=== PATIENT | female | born 1965 | race Two or more races ===

== ENCOUNTER 2019-08-02 12:21 | Inpatient (IN) | payer MEDICAID ==
[~2019-08-02] VITALS: Ht 167.6 cm; Wt 103.0 kg
[~2019-08-02 12:21] MED LIST: lorazapam PO
[2019-08-02] MEDS ORDERED: SODIUM CHLORIDE 0.9% 1,000 ML IVB ONE (13:26)
[2019-08-02 13:45] LABS: Basophils # (auto) 0 uL; Basophils % (auto) 0.3 % (0.0-2.0); Eosinophils # (auto) 0.1 uL; Eosinophils % (auto) 1.1 % (0.0-7.0); Hematocrit 39.2 % (36.0-46.0); Lymphocytes # (auto) 1.1 uL; Lymphocytes % (auto) 11.3 % (10.0-50.0); Mean Corpuscular Hemoglobin 29.5 pg (28.0-32.0); Mean Corpuscular Hgb Conc. 33.2 g/dL (32.0-36.0); Mean Corpuscular Volume 88.8 fL (80.0-100.0); Monocytes # (auto) 0.4 uL; Monocytes % (auto) 4.6 % (0.0-12.0); Neutrophils # (auto) 7.9 uL; Neutrophils % (auto) 82.7 % (37.0-80.0); Platelet Count (auto) 254 10^3/uL (140-450); Red Blood Cells 4.41 10^6/uL (4.0-5.20); Red Cell Distribution Width 13.5 % (11.8-14.3); White Blood Cell 9.6 10^3/uL (4.4-10.8)
[2019-08-02 14:03] LABS: Albumin 3.3 g/dL (3.4-5.0); BUN/Creatinine Ratio 16.4; Calcium 8.5 mg/dL (8.5-10.1); Magnesium 2.2 mg/dL (1.6-2.6); Potassium 4.1 mmol/L (3.5-5.1)
[2019-08-02 14:05] LABS: INR 0.95 (0.9-1.15); Partial Thromboplastin Time 28.5 sec (23.64-32.05)
[2019-08-02 14:06] LABS: Bilirubin, Total 0.7 mg/dL (0.2-1.0)
[2019-08-02] MEDS: PROMETHAZINE HCL 25 MG/ML 1ML IV PRN ×2 (15:13→21:12)
[2019-08-02] MEDS ORDERED: cefTRIAXone 1GM/50ML D5W 50 ML IV ONE (16:45)
[2019-08-02] MEDS ORDERED: ACETAMINOPHEN 500 MG TAB PO PRN (17:15)
[2019-08-02] MEDS ORDERED: ONDANSETRON HCL 4 MG/2 ML VIAL IV PRN (17:15)
[2019-08-02] MEDS ORDERED: MORPHINE SULF INJ 2 MG/ML SYRINGE 1ML IV PRN (17:15)
[2019-08-02] MEDS ORDERED: NITROGLYCERIN 0.4 MG SL TAB SL PRN (17:15)
[2019-08-02] MEDS: D5W/SOD CHL 0.45%/KCL 20MEQ 1,000 ML IV SCH (17:24)
[2019-08-02] MEDS: LEVOFLOXACIN 500MG 100 ML IV SCH (17:38)
[2019-08-02] MEDS ORDERED: hydrALAZINE HCL 20 MG/ML VL IV PRN (17:45)
--- NOTE | 2019-08-02 18:47 | NUR ---
PATIENT RECEIVED FROM EMERGENCY ROOM WITHOUT REPORT
--- NOTE | 2019-08-02 20:15 | NUR ---
RECEIVED PATIENT IN BED, AAOX4. NO DISTRESS NOTED. INTRODUCED MYSELF TO THE PATIENT. ORIENTATION DONE. AFEBRILE. NO SOB NOTED. ABDOMINAL PAIN NOTED. WILL MEDICATE PATIENT. POCS DISCUSSED WITH PATIENT AND SHOWED UNDERSTANDING. BED KEPT ON LOWEST POSITION. SIDE RAILS UP. CALL LIGHT/TABLE IN REACH. KEPT COMFORTABLE.
[2019-08-02] MEDS: metroNIDAZOLE 500MG/100ML 100 ML IV SCH (21:11)
[2019-08-02] MEDS: FAMOTIDINE (10MG/ML) 2ML VL IV SCH (21:11)
[2019-08-02] MEDS: MORPHINE SULF INJ 2 MG/ML SYRINGE 1ML IV PRN (21:12)
[2019-08-02 21:15] LABS: Urine Bacteria FEW /hpf (None Seen); Urine Blood Negative /uL (Negative); Urine Mucus FEW (None Seen); Urine WBC 8 /hpf (0 - 5)
[2019-08-02 22:00] VITALS: BP 117/60
[2019-08-03] MEDS: D5W/SOD CHL 0.45%/KCL 20MEQ 1,000 ML IV SCH ×3 (04:13→23:15)
[2019-08-03] MEDS: MORPHINE SULF INJ 2 MG/ML SYRINGE 1ML IV PRN ×3 (04:35→22:46)
[2019-08-03 05:00] VITALS: BP_SYST 117; BP_SYST 153; BP_DIAS 100; BP_DIAS 62
[2019-08-03] MEDS: metroNIDAZOLE 500MG/100ML 100 ML IV SCH ×3 (06:00→22:18)
--- NOTE | 2019-08-03 06:16 | NUR ---
ON BED, ASLEEP. NO DISTRESS NOTED. FOR MORE CARE AND MANAGEMENT.
--- NOTE | 2019-08-03 08:11 | NUR ---
Opening Shift Note Assumed care of patient, awake and alert. No S/S of distress/SOB. Patient reports 8/10 headache. Will medicate patient for pain per MD order. Instructed on POC and to call for assist PRN, will continue to monitor for changes Q1hr and PRN.
[2019-08-03 09:00] VITALS: BP 130/63
--- NOTE | 2019-08-03 09:18 | NUR ---
Patient down to OR at this time. Medications withheld.
[2019-08-03] MEDS ORDERED: ceFAZolin 1GM/50ML 50 ML IV ONE (09:22)
[2019-08-03] MEDS ORDERED: POVIDONE IODINE 5% TOPICAL CREAM TOP ONE (09:50)
[2019-08-03] MEDS ORDERED: SUCCINYLCHOLINE CHLORIDE 20 MG/ML 10ML VIAL IV ONE (09:52)
[2019-08-03] MEDS ORDERED: MEPERIDINE HCL (50 MG/ML) 1 ML VIAL ONE (09:54)
[2019-08-03] MEDS ORDERED: MIDAZOLAM HCL 1MG/1ML-2 ML VIAL ONE (09:54)
[2019-08-03] MEDS ORDERED: fentaNYL CITRATE 100 MCG/2 ML VL ONE (09:54)
[2019-08-03] MEDS ORDERED: MORPHINE SULFATE 4 MG/ML SYR/VIAL IV PRN (10:00)
[2019-08-03] MEDS ORDERED: LABETALOL HCL 5 MG/ML 4ML SYRINGE IV PRN (10:00)
[2019-08-03] MEDS ORDERED: HYDROmorphone HCL 2 MG/ML VL IV PRN (10:00)
[2019-08-03] MEDS ORDERED: ACCU-CHEK COMFORT CURVE STRIP VI ONE (10:00)
[2019-08-03] MEDS ORDERED: MIDAZOLAM HCL 1MG/1ML-2 ML VIAL IV PRN (10:00)
[2019-08-03] MEDS ORDERED: ONDANSETRON HCL 4 MG/2 ML VIAL IV PRN (10:00)
[2019-08-03] MEDS ORDERED: KETOROLAC TROMETH 30 MG/ML 1ML VIAL IV ONE (10:00)
[2019-08-03] MEDS ORDERED: ePHEDrine SULFATE 50 MG/ML AMP IV PRN (10:00)
[2019-08-03] MEDS ORDERED: DexAMETHasone SOD PHOS 10MG/1ML VIAL INJ ONE (10:09)
[2019-08-03] MEDS ORDERED: PROPOFOL 10 MG/ML 20 ML IV ONE (10:09)
[2019-08-03] MEDS ORDERED: ROCURONIUM 10MG/ML 10ML VIAL IV ONE (10:09)
[2019-08-03] MEDS ORDERED: METOCLOPRAMIDE HCL 5MG/ml INJ 2ml VIAL ONE (10:33)
[2019-08-03] MEDS ORDERED: NEOSTIGMINE 1 MG/ML INJ (10mg/10ML VIAL) ONE (10:33)
[2019-08-03] MEDS ORDERED: GLYCOPYRROLATE 0.2 MG/ML 1ML VIAL ONE (10:46)
[2019-08-03] MEDS ORDERED: FUROSEMIDE 20 MG/2 ML VIAL IV ONE (11:11)
[2019-08-03] MEDS ORDERED: FUROSEMIDE 20 MG/2 ML VIAL ONE (11:12)
[2019-08-03] MEDS: FAMOTIDINE (10MG/ML) 2ML VL IV SCH ×2 (12:04→22:18)
[2019-08-03] MEDS: LEVOFLOXACIN 500MG 100 ML IV SCH (12:04)
[2019-08-03] MEDS: amLODIPine BESYLATE 5 MG TAB PO SCH (12:04)
--- NOTE | 2019-08-03 12:15 | NUR ---
Report received from CASSIDY Lauren that patient at OR/Surgery at this time for a procedure as per Dr. Huddleston. Patient will be on Telemetry after surgery.
--- NOTE | 2019-08-03 13:00 | NUR ---
Patient back to room post op Lap Cholecystectomy. Placed on O2 at 3 LPM. Assisted the patient with bedpan. Clear, yellow urine noted on the bedpan.
--- NOTE | 2019-08-03 13:15 | NUR ---
Informed Dr. Parra that patient has potential ischemia as per EKG at OR/Surgery as reported by the TRADE MANAGERCASSIDY Meraz.
--- NOTE | 2019-08-03 13:20 | NUR ---
BP = 140/83, Heart Rate = 58, RR = 16, O2 Sat = 92 % on O2 at 3 LPM via nasal cannula.
--- NOTE | 2019-08-03 13:25 | NUR ---
Patient eating lunch, on Clear Liquid Diet. Patient able to tolerate clear liquids.
--- NOTE | 2019-08-03 13:45 | NUR ---
Both legs on SCDs hooked on SCD machine.
--- NOTE | 2019-08-03 14:45 | NUR ---
PTARICIA Winn assisted the patient to the bathroom.
[2019-08-03 17:00] VITALS: BP 135/90
--- NOTE | 2019-08-03 17:11 | NUR ---
Patient stated she has headache and stomach pain. Facial grimacing noted, rubbing her abdominal area.
--- NOTE | 2019-08-03 17:11 | NUR ---
Heart rate = 98 to 101 bpm on site monitor. Morphine Sulf Inj 1 mg given for pain level at 10/10 at this time.
--- NOTE | 2019-08-03 17:20 | NUR ---
Attempted to call patient's sister, phone # on the face sheet not the correct contact number.
--- NOTE | 2019-08-03 17:20 | NUR ---
Unable to verify the home medications, patient has no list of medications with her.
--- NOTE | 2019-08-03 18:40 | NUR ---
Assisted the patient to the bathroom. Patient urinated, no bowel movement. Assisted the patient back to bed.
--- NOTE | 2019-08-03 19:05 | NUR ---
Patient stated she has headache. Tylenol PO given for headache. [facility] shift lead [employer] at bedside.
--- NOTE | 2019-08-03 19:20 | NUR ---
Opening Shift Note Assumed care of patient, awake and alert. Resting in bed comfortably. No S/S of distress/SOB or pain. Patient status post lap choley, with 3 abdominal incisions which are dry and intact upon inspection, abdominal binder in place. SCDs in place. Patient verbalizes tolerable pain at this moment. Instructed on POC and to call for assist PRN, will continue to monitor for changes Q1hr and PRN.
--- NOTE | 2019-08-03 19:40 | NUR ---
IV insertion IV access obtained, via clean sterile technique by inserting 20 gauge catheter at RIGHT HAND after 1 attempt. IV secured properly. No trauma to site. Patient tolerated well.
--- NOTE | 2019-08-03 19:45 | NUR ---
LAC IV removal D/T observed leaking at site IV DC'd with clean sterile technique, catheter fully intact. Pressure dressing applied to site. Patient tolerated well.
--- NOTE | 2019-08-03 21:30 | NUR ---
PATIENT UP TO AMBULATE PATIENT AMBULATING THROUGH UNIT WITH NURSING STAFF FOR STAND BY ASSIST. PATIENT TOLERATING WELL
--- NOTE | 2019-08-03 22:00 | NUR ---
PATIENT BACK IN BED FROM AMBULATION STATES, "I FEEL EVEN BETTER AFTER WALKING." WILL CONTINUE TO AMBULATE Q4H PER ORDER CALL LIGHT WITHIN REACH
--- NOTE | 2019-08-03 22:40 | NUR ---
PAIN PATIENT VERBALIZES ABDOMINAL PAIN, RATING IT 7/10. WILL ASSESS AND MEDICATE PER ORDER.
[2019-08-03 23:27] VITALS: BP 133/86
--- NOTE | 2019-08-04 02:12 | NUR ---
PATIENT AMBULATES WITH STANDBY ASSIST TO RESTROOM. TOLERATED WELL.
[2019-08-04] MEDS: MORPHINE SULF INJ 2 MG/ML SYRINGE 1ML IV PRN ×2 (03:34→14:20)
[2019-08-04 05:33] VITALS: BP 133/74
[2019-08-04] MEDS: metroNIDAZOLE 500MG/100ML 100 ML IV SCH ×3 (05:56→22:23)
--- NOTE | 2019-08-04 07:30 | NUR ---
Opening Shift Note Assumed care of patient, awake and alert. No S/S of distress/SOB or pain. Instructed on POC and to call for assist PRN, will continue to monitor for changes Q1hr and PRN.
[2019-08-04 08:00] VITALS: BP 145/67
[2019-08-04 09:00] VITALS: BP 145/67
[2019-08-04] MEDS: HYDROcodone-ACET 5/325MG TAB PO PRN ×2 (09:16→22:24)
[2019-08-04] MEDS: amLODIPine BESYLATE 5 MG TAB PO SCH (09:23)
[2019-08-04] MEDS: LEVOFLOXACIN 500MG 100 ML IV SCH (09:23)
[2019-08-04] MEDS: FAMOTIDINE (10MG/ML) 2ML VL IV SCH ×2 (09:25→22:23)
[2019-08-04 13:00] VITALS: BP 134/98
[2019-08-04] MEDS: D5W/SOD CHL 0.45%/KCL 20MEQ 1,000 ML IV SCH ×2 (13:55→19:15)
[2019-08-04 17:15] VITALS: BP 126/77
[2019-08-04 23:16] VITALS: BP 127/79
[2019-08-05] MEDS: D5W/SOD CHL 0.45%/KCL 20MEQ 1,000 ML IV SCH (05:15)
[2019-08-05 05:26] VITALS: BP_SYST 135; BP_SYST 94; BP_DIAS 63; BP_DIAS 77
[2019-08-05] MEDS: metroNIDAZOLE 500MG/100ML 100 ML IV SCH ×3 (05:42→23:05)
--- NOTE | 2019-08-05 07:30 | NUR ---
Opening Shift Note Assumed care of patient, awake and alert. No S/S of distress/SOB or pain. Patient has cough that was getting worse last night. She is requesting cough medicine. Will try to obtain order from doctor. Instructed on POC and to call for assist PRN, will continue to monitor for changes Q1hr and PRN.
[2019-08-05 08:00] VITALS: BP 132/57
[2019-08-05] MEDS: FAMOTIDINE (10MG/ML) 2ML VL IV SCH ×2 (09:48→21:05)
[2019-08-05] MEDS: LEVOFLOXACIN 500MG 100 ML IV SCH (09:48)
[2019-08-05] MEDS: amLODIPine BESYLATE 5 MG TAB PO SCH (09:49)
[2019-08-05 09:51] VITALS: BP 132/57
[2019-08-05 13:00] VITALS: BP 125/69
[2019-08-05 14:18] LABS: Basophils # (auto) 0.1 uL; Basophils % (auto) 0.8 % (0.0-2.0); Eosinophils # (auto) 0.3 uL; Eosinophils % (auto) 2.3 % (0.0-7.0); Hematocrit 41.6 % (36.0-46.0); Hemoglobin 13.6 g/dL (12.2-16.2); Lymphocytes # (auto) 1.7 uL; Lymphocytes % (auto) 14.7 % (10.0-50.0); Mean Corpuscular Hemoglobin 29.2 pg (28.0-32.0); Mean Corpuscular Hgb Conc. 32.7 g/dL (32.0-36.0); Mean Corpuscular Volume 89.2 fL (80.0-100.0); Monocytes # (auto) 0.8 uL; Monocytes % (auto) 6.5 % (0.0-12.0); Neutrophils # (auto) 8.8 uL; Neutrophils % (auto) 75.7 % (37.0-80.0); Platelet Count (auto) 278 10^3/uL (140-450); Red Blood Cells 4.67 10^6/uL (4.0-5.20); Red Cell Distribution Width 13.2 % (11.8-14.3); White Blood Cell 11.6 10^3/uL (4.4-10.8)
[2019-08-05 14:41] LABS: Albumin 3.4 g/dL (3.4-5.0); BUN/Creatinine Ratio 13.6; Calcium 8.8 mg/dL (8.5-10.1); Potassium 3.7 mmol/L (3.5-5.1)
[2019-08-05 14:44] LABS: Bilirubin, Total 0.4 mg/dL (0.2-1.0); Total Protein 7.7 g/dL (6.4-8.2)
[2019-08-05] MEDS: guaiFENesin-DM 100/10mg/5ml SYR PO PRN (15:34)
[2019-08-05 17:00] VITALS: BP 124/63
[2019-08-05] MEDS: HYDROcodone-ACET 5/325MG TAB PO PRN (20:29)
[2019-08-05 22:00] VITALS: BP 143/98
[2019-08-06] MEDS: guaiFENesin-DM 100/10mg/5ml SYR PO PRN ×2 (00:42→10:11)
[2019-08-06 05:00] VITALS: BP 129/59
[2019-08-06 05:55] LABS: Basophils # (auto) 0.1 uL; Basophils % (auto) 0.6 % (0.0-2.0); Eosinophils # (auto) 0.3 uL; Eosinophils % (auto) 3.9 % (0.0-7.0); Hematocrit 41.1 % (36.0-46.0); Hemoglobin 13.8 g/dL (12.2-16.2); Lymphocytes # (auto) 2.5 uL; Mean Corpuscular Hemoglobin 29.6 pg (28.0-32.0); Mean Corpuscular Hgb Conc. 33.6 g/dL (32.0-36.0); Monocytes # (auto) 0.6 uL; Monocytes % (auto) 6.9 % (0.0-12.0); Neutrophils # (auto) 5.1 uL; Neutrophils % (auto) 59.6 % (37.0-80.0); Nucleated Red Blood Cells % 0.1 %; Platelet Count (auto) 282 10^3/uL (140-450); Red Blood Cells 4.67 10^6/uL (4.0-5.20); Red Cell Distribution Width 13.7 % (11.8-14.3); White Blood Cell 8.5 10^3/uL (4.4-10.8)
[2019-08-06] MEDS: metroNIDAZOLE 500MG/100ML 100 ML IV SCH ×2 (06:27→13:36)
[2019-08-06 06:33] LABS: Albumin 3.4 g/dL (3.4-5.0); BUN/Creatinine Ratio 18.1; Calcium 8.8 mg/dL (8.5-10.1); Potassium 3.7 mmol/L (3.5-5.1)
[2019-08-06 06:36] LABS: Bilirubin, Total 0.4 mg/dL (0.2-1.0); Total Protein 7.4 g/dL (6.4-8.2)
[2019-08-06 08:00] VITALS: BP 148/95
[2019-08-06 09:00] VITALS: BP 148/95
[2019-08-06] MEDS: LEVOFLOXACIN 500MG 100 ML IV SCH (10:00)
[2019-08-06] MEDS: FAMOTIDINE (10MG/ML) 2ML VL IV SCH (10:10)
[2019-08-06] MEDS: amLODIPine BESYLATE 5 MG TAB PO SCH (10:11)
--- NOTE | 2019-08-06 10:12 | NUR ---
IV removal IV DC'd with clean sterile technique, catheter fully intact. Pressure dressing applied to site. Patient tolerated well. NOTE: The IV site became tender. There was also signs of swelling and heat to the touch. Patient encouraged to keep arm elevated. Will continue to monitor swelling.
[2019-08-06 13:00] VITALS: BP 104/53
--- NOTE | 2019-08-06 16:25 | NUR ---
Discharge instructions given as ordered. Encourage to follow up with Dr. Huddleston for staple removal. Additional resources given to patient. Patient reports that they see a doctor every three months at a clinic. All questions and concerns addressed. Patient verbalized understanding. IV removed with catheter intact, pressure dressing applied. Telemetry unit returned to quality assurance monitor. Patient ambulated to vehicle with all personal belongings, accompanied by staff and family member. No distress noted at time of departure.
== END 2019-08-06 16:25 | disposition home or self-care (01) | DRG 263 ==
LOC: EDBD 12:21 → ER 12:26 → OVERFLOW 12:27 → WEST WING 18:26 → TELE-WESTW 08-03 14:14
PROVIDERS: ADMIT Nurse Practitioner Acute Care; ATTEND Internal Medicine Pulmonary Disease
PROC: 0FT44ZZ Resection of Gallbladder, Percutaneous Endoscopic Approach (ICD-10-PCS; principal; 2019-08-02)
DX: K80.00 Calculus of gallbladder with acute cholecystitis without obstruction (principal); E66.01 Morbid (severe) obesity due to excess calories; R16.0 Hepatomegaly, not elsewhere classified; E78.5 Hyperlipidemia, unspecified; F41.9 Anxiety disorder, unspecified; I10 Essential (primary) hypertension; E78.00 Pure hypercholesterolemia, unspecified; Z88.5 Allergy status to narcotic agent; Z88.6 Allergy status to analgesic agent; Z83.3 Family history of diabetes mellitus; Z82.49 Family history of ischemic heart disease and other diseases of the circulatory system; Z98.891 History of uterine scar from previous surgery; Z98.51 Tubal ligation status; Z79.899 Other long term (current) drug therapy; Z68.36 Body mass index [BMI] 36.0-36.9, adult
CPT/HCPCS: 36415; 71045; 76705; 80053; 81001; 82150; 82247; 83690; 83735; 85025; 85610; 85730; 86850; 86900; 86901; 93005; 94761; 96365; G0378; J0330; J0690; J0696; J1100; J1956; J2250; J2405; J2704; J3490

== ENCOUNTER 2021-06-26 11:24 | Inpatient (IN) | payer MEDICAID ==
[~2021-06-26] VITALS: Ht 172.7 cm; Wt 90.7 kg
[2021-06-26] MEDS ORDERED: methylPREDNISolone SOD SUCC 125 MG/2 ML VL IV ONE (12:15)
[2021-06-26 13:13] LABS: Basophils # (auto) 0.1 10 ^3/uL (0-0.2); Basophils % (auto) 0.6 % (0.0-2.0); Eosinophils # (auto) 0.1 10 ^3/uL (0-0.8); Eosinophils % (auto) 1.5 % (0.0-7.0); Hematocrit 42.6 % (36.0-46.0); Hemoglobin 14.1 g/dL (12.2-16.2); Lymphocytes # (auto) 0.9 10 ^3/uL (0.4-5.4); Lymphocytes % (auto) 10.8 % (10.0-50.0); Mean Corpuscular Hgb Conc. 33.2 g/dL (32.0-36.0); Mean Corpuscular Volume 87.3 fL (80.0-100.0); Monocytes # (auto) 0.5 10 ^3/uL (0-1.3); Monocytes % (auto) 5.6 % (0.0-12.0); Neutrophils # (auto) 6.8 10 ^3/uL (1.6-8.6); Neutrophils % (auto) 81.5 % (37.0-80.0); Red Blood Cells 4.88 10^6/uL (4.0-5.20); Red Cell Distribution Width 13.2 % (11.8-14.3); White Blood Cell 8.4 10^3/uL (4.4-10.8)
[2021-06-26 13:37] LABS: Albumin 3.4 g/dL (3.4-5.0); Anion Gap 7 (5-15); Blood Urea Nitrogen 20 mg/dL (7-18); Calcium 8.6 mg/dL (8.5-10.1); Carbon Dioxide 23 mmol/L (21-32); Chloride 109 mmol/L (98-107); Glucose 101 mg/dL (74-106); Potassium 4.3 mmol/L (3.5-5.1); Sodium 139 mmol/L (136-145)
[2021-06-26 13:43] LABS: Alanine Aminotransferase 55 U/L (13-56); Alkaline Phosphatase 60 U/L (45-117); Aspartate Aminotransferase 24 U/L (15-37); Bilirubin, Total 0.2 mg/dL (0.2-1.0); CRP High Sensitivity 0.26 mg/dL (< 0.3); GFR African American 114 mL/min; GFR Non-African American 94 mL/min; Total Protein 7.5 g/dL (6.4-8.2)
[2021-06-26] MEDS ORDERED: SODIUM CHLORIDE 0.9% 500 ML IV ONE (15:00)
[2021-06-26] MEDS ORDERED: DOCUSATE CALCIUM 240 MG CAP PO PRN (15:00)
[2021-06-26] MEDS ORDERED: NITROGLYCERIN 0.4 MG SL TAB SL PRN (15:00)
[2021-06-26] MEDS ORDERED: hydrALAZINE HCL 20 MG/ML VL IV PRN (15:00)
[2021-06-26] MEDS ORDERED: ONDANSETRON HCL 4 MG/2 ML VIAL IV PRN (15:00)
[2021-06-26] MEDS ORDERED: ACETAMINOPHEN 500 MG TAB PO PRN (15:00)
[2021-06-26 15:27] LABS: INR 0.98 (0.9-1.15)
[2021-06-26] MEDS: SODIUM CHLORIDE 0.9% 1,000 ML IV SCH (16:18)
[2021-06-26 20:37] LABS: Urine Bacteria NONE SEEN /hpf (None Seen); Urine Blood 1+ /uL (Negative); Urine Mucus FEW (None Seen); Urine Specific Gravity 1.009 (1.001-1.035); Urine WBC 3 /hpf (0 - 5)
[2021-06-26] MEDS: BUDESONIDE (INHALATION) 180 MCG IH IN SCH (22:00)
[2021-06-26] MEDS: ENOXAPARIN SOD 40 MG/0.4 ML SYRINGE SC SCH (22:33)
[2021-06-27] MEDS: ALBUTEROL SULF HFA 90MCG INH 200DOSE IN PRN ×2 (00:30→10:43)
[2021-06-27] MEDS: SODIUM CHLORIDE 0.9% 1,000 ML IV SCH ×2 (04:20→19:34)
[2021-06-27] MEDS: BUDESONIDE (INHALATION) 180 MCG IH IN SCH ×2 (10:43→22:00)
[2021-06-27] MEDS: AZITHROMYCIN 500MG/ 250ML 250 ML IV SCH (10:45)
[2021-06-27] MEDS: ENOXAPARIN SOD 40 MG/0.4 ML SYRINGE SC SCH ×2 (10:45→21:02)
[2021-06-27] MEDS: ASCORBIC ACID 1,000 MG TAB PO SCH (10:45)
[2021-06-27] MEDS: CHOLECALCIFEROL (VITD3) 2,000 UNIT CAP/TAB PO SCH (10:45)
[2021-06-27] MEDS: ZINC SULFATE 220mg CAP or TAB PO SCH (10:45)
[2021-06-27] MEDS: PANTOPRAZOLE 40 MG TAB PO SCH (10:45)
[2021-06-27 18:37] VITALS: BP 135/57
[2021-06-27] MEDS ORDERED: LISI-716 PO (19:10)
[2021-06-27] MEDS ORDERED: MECL25CH38 PO (20:25)
[2021-06-27] MEDS ORDERED: NAPR500T31 PO (20:25)
[2021-06-27 22:53] VITALS: BP 131/82
[2021-06-27 22:56] VITALS: BP 131/82
[2021-06-28 05:11] VITALS: BP 150/85
[2021-06-28] MEDS: ALBUTEROL SULF HFA 90MCG INH 200DOSE IN PRN (06:55)
[2021-06-28] MEDS: BUDESONIDE (INHALATION) 180 MCG IH IN SCH (06:55)
[2021-06-28] MEDS: SODIUM CHLORIDE 0.9% 1,000 ML IV SCH (07:00)
[2021-06-28] MEDS ORDERED: OMEP20TA PO (07:41)
[2021-06-28 09:00] VITALS: BP 133/76
[2021-06-28] MEDS: PANTOPRAZOLE 40 MG TAB PO SCH (09:53)
[2021-06-28] MEDS: AZITHROMYCIN 500MG/ 250ML 250 ML IV SCH (09:53)
[2021-06-28] MEDS: ZINC SULFATE 220mg CAP or TAB PO SCH (09:53)
[2021-06-28] MEDS: ASCORBIC ACID 1,000 MG TAB PO SCH (09:54)
[2021-06-28] MEDS: CHOLECALCIFEROL (VITD3) 2,000 UNIT CAP/TAB PO SCH (09:54)
[2021-06-28] MEDS: ENOXAPARIN SOD 40 MG/0.4 ML SYRINGE SC SCH (09:54)
[2021-06-28] MEDS ORDERED: LEVO750T64 PO (10:55)
[2021-06-28] MEDS ORDERED: ALBUAER3 IN (10:55)
[2021-06-28] MEDS ORDERED: CHOL1CAP47 PO (10:55)
[2021-06-28] MEDS ORDERED: ASCO10003 PO (10:55)
[2021-06-28 13:00] VITALS: BP 132/85
== END 2021-06-28 16:00 | disposition home or self-care (01) | DRG 137 ==
LOC: ER 11:24 → EDBD 11:24 → TELE 14:52 → TELE-EAST 06-27 18:08
PROVIDERS: ADMIT Family Medicine; ATTEND Internal Medicine Pulmonary Disease
DX: U07.1 COVID-19 (principal); E78.5 Hyperlipidemia, unspecified; E86.0 Dehydration; I10 Essential (primary) hypertension; R53.83 Other fatigue; F41.9 Anxiety disorder, unspecified; Z82.49 Family history of ischemic heart disease and other diseases of the circulatory system; Z83.3 Family history of diabetes mellitus; Z88.5 Allergy status to narcotic agent; Z88.6 Allergy status to analgesic agent
CPT/HCPCS: 36415; 70450; 71045; 80053; 81001; 82306; 82728; 83605; 83615; 83735; 84443; 84484; 85025; 85379; 85610; 86141; 87040; 87426; 93005; 94640; 96361; 96374; 99291; G0378

== ENCOUNTER → 2024-09-15 | Outpatient (CLI) | payer MEDICAID ==
[~2024-09-15] MED LIST changes: +ALBUAER3 IN; +ALBUTEROL SULF 2.5 MG/0.5ML(0.5%) NEB SOLN ONE; +ASCO10003 PO; +CHOL1CAP47 PO; +LEVO750T40 PO; +LISI10TA34 PO; +MECL25CH38 PO; +NAPR-746 PO; +OMEP20TA PO; -lorazapam PO
== END | disposition home or self-care (01) ==
LOC: RT 10:57
PROVIDERS: ATTEND Internal Medicine Pulmonary Disease
DX: R06.00 Dyspnea, unspecified (principal)
CPT/HCPCS: 94060; 94618; 94727; 94729